=== PATIENT | male | born 1990 | race Caucasian/White ===

== ENCOUNTER 2024-08-15 13:32 | Emergency (ER) | payer OTHER ==
[~2024-08-15] VITALS: Ht 188 cm; Wt 79.4 kg
[2024-08-15] MEDS ORDERED: TETRAcaine 5 ML BOTTLE ONE (14:46)
[2024-08-15] MEDS: TETRAcaine 5 ML BOTTLE EACHEYE ONE (14:47)
[2024-08-15] MEDS: FLUORESCEIN SODIUM OPHTH 1 EA STRIP OP ONE (14:48)
[2024-08-15] MEDS ORDERED: POLY10DR3 LEFTEYE (15:15)
[2024-08-15 15:39] VITALS: BP 126/64; TEMP 98.6; O2SAT 98
== END 2024-08-15 15:39 | disposition home or self-care (01) ==
LOC: ER 13:39
DX: S05.02XA Injury of conjunctiva and corneal abrasion without foreign body, left eye, initial encounter (principal); F17.200 Nicotine dependence, unspecified, uncomplicated; W44.9XXA Unspecified foreign body entering into or through a natural orifice, initial encounter; Y93.89 Activity, other specified; Y92.89 Other specified places as the place of occurrence of the external cause; Y99.8 Other external cause status